=== PATIENT | male | born 1965 | race American Indian/Alaskan Native ===

== ENCOUNTER 2018-07-24 06:30 | Emergency (ER) | payer OTHER ==
--- NOTE | 2018-07-24 07:08 | Emergency Department Report ---
ED Lower Extremity HPI - General Chief Complaint: Extremity Injury, Lower Stated Complaint: RT ANKLE PAIN Time Seen by Provider: 07/24/18 06:58 Source: patient Mode of arrival: Wheelchair Limitations: No Limitations - Related Data Previous Rx's Medication Instructions Recorded Last Taken Type Ibuprofen [Motrin] 800 mg PO Q8HR PRN #15 tablet 07/24/18 Unknown Rx Allergies Allergy/AdvReac Type Severity Reaction Status Date / Time No Known Allergies Allergy Verified 07/24/18 06:47 ED Review of Systems ROS: Stated complaint: RT ANKLE PAIN Other details as noted in HPI ED Past Medical Hx - Past Medical History Previous Medical History?: No - Surgical History Past Surgical History?: No - Social History Smoking Status: Never Smoker Substance Use Type: None - Medications Home Medications: Home Medications Medication Instructions Recorded Confirmed Last Taken Type Ibuprofen [Motrin] 800 mg PO Q8HR PRN #15 tablet 07/24/18 Unknown Rx ED Physical Exam - General Limitations: No Limitations ED Course Vital Signs 07/24/18 06:43 Temperature 98.6 F Pulse Rate 80 Respiratory 18 Rate Blood Pressure 153/96 O2 Sat by Pulse 96 Oximetry ED Lower Extremity MDM - Radiology Data Radiology results: report reviewed X-ray 3 view right ankle dictated radiologist report reviewed by myself. Please see details below Patient: ANGELICA MCCLOUD MR#: [id number] : 1965 Acct:[id number] Age/Sex: 53 / M ADM Date: 07/24/18 Loc: ED Attending Dr: Ordering Physician: YUN HERBERT MD Date of Service: 07/24/18 Procedure(s): XR ankle 3+V RT Accession Number(s): [id number] cc: YUN HERBERT MD Fluoro Time In Minutes: FINAL REPORT EXAM: XR ANKLE 3+V RT HISTORY: fall with pain and swelling COMPARISONS: None. FINDINGS: Three views right ankle Intact ankle mortise. Periarticular soft tissue swelling. No bone lesion, periosteal reaction, or fracture. No deformity or gross malalignment. Os peroneum is noted. Small Achilles insertional enthesophytes. IMPRESSION: Soft tissue swelling about the right ankle without evident fracture or gross malalignment. Transcribed By: MB Dictated By: SCARLETT GALINDO MD Electronically Authenticated By: SCARLETT GALINDO MD Signed Date/Time: 07/24/18707 DD/ 7 TD/TT: 07/24/18707 - Differential Diagnosis FX versus dislocation, sprain, musculoskeletal pain Critical care attestation.: If time is entered above; I have spent that time in minutes in the direct care of this critically ill patient, excluding procedure time. ED Disposition Clinical Impression: Right ankle sprain Qualifiers: Encounter type: initial encounter Involved ligament of ankle: unspecified ligament Qualified Code(s): S93.401A - Sprain of unspecified ligament of right ankle, initial encounter Right ankle injury Qualifiers: Encounter type: initial encounter Qualified Code(s): S99.911A - Unspecified injury of right ankle, initial encounter Disposition: TO HOME OR SELFCARE Is pt being admited?: No Does the pt Need Aspirin: No Condition: Stable Instructions: Ankle Sprain (ED), Ankle Stirrup Splint (ED), Ankle Exercises ( GEN), RICE Therapy (ED) Additional Instructions: These follow-up with orthopedic doctor in 2-3 days Take Motrin as prescribed but please take with food as this medication causes irritation to start alkaline and See discharge instruction in Rice therapy Referrals: DIEGO HOLLAND MD [Staff Physician] - 2-[address] [facility] [Outside] - 2-3 Days Forms: Work/School Release Form(ED)
[2018-07-24] MEDS ORDERED: MOTRIN PO ONE (07:26)
[2018-07-24 08:11] VITALS: BP 150/91
== END 2018-07-24 08:09 | disposition home or self-care (01) ==
LOC: ED 06:30
DX: S93.401A Sprain of unspecified ligament of right ankle, initial encounter (principal); W05.0XXA Fall from non-moving wheelchair, initial encounter; Y93.89 Activity, other specified; Y92.89 Other specified places as the place of occurrence of the external cause; Y99.8 Other external cause status

== ENCOUNTER 2022-03-29 15:11 | Emergency (ER) | payer OTHER ==
[2022-03-29] MEDS ORDERED: SODIUM CHLORIDE 0.9% 1000 ML 1,000 ML IV ONE (15:37)
--- NOTE | 2022-03-29 16:04 | Emergency Department Report ---
ED General Adult HPI - General Chief complaint: Altered Mental Status Stated complaint: ELEVATED GLUCOSE LEVELS Time Seen by Provider: 03/29/22 15:34 Source: EMS Mode of arrival: Stretcher Limitations: No Limitations - History of Present Illness Initial comments: Patient is a 56-year-old male brought in from work by EMS for evaluation of generalized weakness. He denies any chest pain, shortness of breath, fever or chills. He has history of type 2 diabetes and is on metformin. Symptoms began approximately 1-1/2 hours ago. Severity scale (0 -10): 0 - Related Data Previous Rx's Medication Instructions Recorded Last Taken Type Ibuprofen [Motrin] 800 mg PO Q8HR PRN #15 tablet 07/24/18 Unknown Rx Allergies Allergy/AdvReac Type Severity Reaction Status Date / Time No Known Allergies Allergy Verified 07/24/18 06:47 ED Review of Systems ROS: Stated complaint: ELEVATED GLUCOSE LEVELS Other details as noted in HPI Comment: All other systems reviewed and negative Constitutional: malaise, weakness Respiratory: denies: cough, shortness of breath, wheezing Cardiovascular: denies: chest pain, palpitations Gastrointestinal: denies: abdominal pain, nausea, diarrhea Genitourinary: denies: urgency, dysuria Musculoskeletal: denies: back pain, joint swelling, arthralgia Neurological: denies: headache, weakness, paresthesias Psychiatric: denies: anxiety, depression ED Past Medical Hx - Past Medical History Previous Medical History?: Yes Hx Diabetes: Yes - Surgical History Past Surgical History?: No - Social History Smoking Status: Never Smoker Substance Use Type: None - Medications Home Medications: Home Medications Medication Instructions Recorded Confirmed Last Taken Type Ibuprofen [Motrin] 800 mg PO Q8HR PRN #15 tablet 07/24/18 Unknown Rx ED Physical Exam - General Limitations: No Limitations General appearance: alert, in no apparent distress - Head Head exam: Present: atraumatic, normocephalic - Respiratory Respiratory exam: Present: normal lung sounds bilaterally. Absent: respiratory distress - Cardiovascular Cardiovascular Exam: Present: regular rate, normal rhythm, normal heart sounds - GI/Abdominal GI/Abdominal exam: Present: soft. Absent: distended, tenderness - Neurological Exam Neurological exam: Present: alert, oriented X3 - Psychiatric Psychiatric exam: Present: normal affect, normal mood - Skin Skin exam: Present: warm, dry, intact, normal color ED Course Vital Signs 03/29/22 03/29/22 03/29/22 15:22 15:58 19:01 Temperature 96.6 F L 97.5 F L Pulse Rate 67 75 Respiratory 20 20 18 Rate Blood Pressure 125/75 Blood Pressure 139/81 [Left] O2 Sat by Pulse 99 99 100 Oximetry ED Medical Decision Making - Lab Data Result diagrams: 03/29/22 15:55 03/29/22 15:55 - Medical Decision Making Labs grossly unremarkable except for serum glucose of 367. Patient given 1 L normal saline bolus. No acute findings on EKG. Vital signs are stable. Patient stable for discharge home with return precautions. Critical care attestation.: If time is entered above; I have spent that time in minutes in the direct care of this critically ill patient, excluding procedure time. ED Disposition Clinical Impression: Generalized weakness, Hyperglycemia due to type 2 diabetes mellitus Disposition: 01 HOME / SELF CARE / HOMELESS Is pt being admited?: No Does the pt Need Aspirin: No Condition: Stable Instructions: Diabetes Mellitus Type 2 in Adults (ED), Hyperglycemia, [id number], Weakness, [id number] Time of Disposition: 19:15
[2022-03-29 17:11] LABS: Basophils % (Auto) 0.5 % (0.0-1.8); Eosinophils % (Auto) 0.2 % (0.0-4.3); Hematocrit 43.2 % (35.5-45.6); Hemoglobin 13.7 gm/dl (11.8-15.2); Lymphocytes # (Auto) 1.2 K/mm3 (1.2-5.4); Lymphocytes % (Auto) 17.1 % (13.4-35.0); Mean Corpuscular HGB Conc 32 % (32-34); Mean Corpuscular Volume 80 fl (84-94); Monocytes # (Auto) 0.5 K/mm3 (0.0-0.8); Monocytes % (Auto) 7.5 % (0.0-7.3); Platelet Count 256 K/mm3 (140-440); Red Cell Distribution Width 14.1 % (13.2-15.2)
[2022-03-29 17:25] LABS: Alanine Aminotransferase 19 units/L (7-56); Albumin 4.5 g/dL (3.9-5); BUN/Creatinine Ratio 12; Blood Urea Nitrogen 12 mg/dL (9-20); Calcium 9.6 mg/dL (8.4-10.2); Hemolysis Index 4
[2022-03-29 17:26] LABS: Bilirubin,Direct < 0.2 mg/dL (0-0.2)
--- NOTE | 2022-03-29 20:42 | Cat Scan Report ---
NONENHANCED CT SCAN OF THE HEAD: INDICATION / CLINICAL INFORMATION: 56 years Male; Headache. TECHNIQUE: Routine CT head without contrast. All CT scans at this location are performed using CT dos e reduction for ALARA by means of automated exposure control. COMPARISON: None. FINDINGS: BRAIN / INTRACRANIAL CONTENTS: No acute hemorrhage, mass effect, midline shift, hydrocephalus, or acu te, large territorial infarct. No chronic infarct or focal atrophy. Normal brain volume and ventricul ar/sulcal size for age. No significant white matter abnormality. CRANIOCERVICAL JUNCTION: No significant abnormality. ORBITS: No significant abnormality of visualized orbits. SINUSES / MASTOIDS: Retention cyst in the right sphenoid sinus ADDITIONAL FINDINGS: None. IMPRESSION: No acute focal parenchymal lesion Signer Name: Adan Sloan MD Signed: 03/29/2022 8:37 PM Workstation Name: [employer]
[2022-03-29 21:22] VITALS: BP 111/62
--- NOTE | 2022-03-31 12:03 | Electrocardiograph Report ---
[facility] Test Date: 2022-03-29 Test Time: 15:45:09 Pat Name: ANGELICA MCCLOUD Department: Room: Gender: M [employer]: LAZARO : 1965 Requested By: ЮЛИЯ SIM Order Number: [id number] Reading MD: Cirilo Moya Measurements Intervals [place] Rate: 63 P: 52 LA: 165 QRS: -44 QRSD: 92 T: 62 QT: 450 QTc: 462 Interpretive Statements Sinus rhythm Left axis deviation No previous ECG available for comparison Electronically Signed On 03-31-2022 12:03:03 EDT by Cirilo Moya
== END 2022-03-29 21:27 | disposition home or self-care (01) ==
LOC: ED 15:11
DX: E11.65 Type 2 diabetes mellitus with hyperglycemia (principal); R53.1 Weakness
CPT/HCPCS: 36415; 70450; 80048; 80076; 85025; 93005; 96360; 99284; J7030